=== PATIENT | female | born 1945 | race Caucasian/White ===

== ENCOUNTER → 2017-01-20 | Outpatient (CLI) | payer OTHER ==
[~2017-01-20] MED LIST: ACETAMINOPHEN-1 EAC1 PO; ADULT LOW STREN81 M2 PO; AGGRENOX1 CAPSULE PO; Aggrenox PO; BYSTOLIC5 MG PO; CYANOCOBALAM1000 MCG PO; DOK PLUS TABLE1 EACH PO; FLEXERIL10 MG PO; HYDROCODON-ACE1 EAC7 PO; INVOKANA100 MG PO; IRON325 MG PO; LIPITOR40 MG PO; LO-DOSE ASPIRIN81 M1 PO; MACRODANTIN50 M1 PO; NEURONTIN300 MG PO; NORVASC5 M1 PO; NORVASC5 MG PO; PEPCID20 MG PO; PROMETHAZINE HC25 M1 PO; PROTONIX40 MG PO; TEKTURNA HCT PO; TRICOR145 MG PO; TYLENOL WITH C1 EACH PO; VITAMIN D-32000 UNI2 PO
== END | disposition home or self-care (01) ==
LOC: NUC 08:19
DX: R11.10 Vomiting, unspecified (principal)
CPT/HCPCS: 78264; A9541